=== PATIENT | female | born 1970 | race Caucasian/White ===

== ENCOUNTER → 2016-12-01 | Outpatient (CLI) | payer OTHER ==
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
== END | disposition home or self-care (01) ==
LOC: SLEEP 15:51
PROVIDERS: ATTEND Internal Medicine
DX: G47.10 Hypersomnia, unspecified (principal); F17.210 Nicotine dependence, cigarettes, uncomplicated; Z88.0 Allergy status to penicillin; Z86.69 Personal history of other diseases of the nervous system and sense organs
CPT/HCPCS: 99211

== ENCOUNTER → 2017-01-12 | Outpatient (CLI) | payer OTHER ==
--- NOTE | 2017-01-13 07:53 | PN ---
DATE OF SERVICE: 01/12/2017 A 46-year-old lady who has been followed in the Sleep Center to discuss results of her sleep studies and plan of the treatment. Patient had diagnostic polysomnogram and multiple sleep latency test and I discussed results of the sleep studies with patient in detail. Diagnostic polysomnogram did not show any significant abnormalities of respiration. Totally normal oxygen level during the sleep study, very minimal periodic limb movements with periods of increasing leg movements at the beginning of the night and then the second part of the night. On the following day, multiple sleep latency test showed short sleep latency of 4.9 minutes, not any sleep onset REM periods have been documented. MEDICATIONS: Synthroid. After sleep study, I started patient on treatment with Modafinil and Adderall. Presently she is taking Modafinil 150 mg around 7 a.m. and at 10 a.m. she is taking Adderall 20 mg and at 2 p.m. she is taking 20 mg of Adderall and 50 mg of Modafinil. Also she is taking Viibryd at 7 a.m. With this regimen she feels better, able to work during the day better, not so sleepy as before. [place] Sleepiness Scale is 13. During physical exam, patient in no distress. BP is 130/85, HR 90, RR 16, oxygen saturation at room air 100%, temperature 98.2. Weight 111.2 and oropharynx slightly low position of soft palate. NECK: Supple. No JVD, Thyroid is not palpable. LUNGS: Clear to percussion and to auscultation. Good air exchange. No wheezing or rhonchi. HEART: S1, S2 regular. No murmurs, gallops, or rubs. ABDOMEN: Soft and nontender. Bowel sounds are present. No organomegaly appreciated. RELEASE COORDINATOR: Awake, alert, and oriented x3. Cranial nerves 2 to 7 intact. There is no fasciculation or atrophy noted. No focal deficits observed. IMPRESSION: 1. Narcolepsy without cataplexy. 2. History of attention deficit disorder. 3. Hypothyroidism. 4. History of depression. PLAN: 1. Continue treatment with the same dose of modafinil 200 mg a day and Adderall 20 mg in the morning and 20 mg afternoon. 2. Daytime naps permitted if patient feels sleepiness. 3. Sleep hygiene with regular time in bed for at least 8-9 hours. 4. No driving if feeling any sleepiness. 5. HLA profile for narcolepsy. Sincerely, Conor Willis MD, PhD, FAASM Diplomat of [place] [employer], Sleep Medicine Board by [employer] Medicine General Assembler Installer of [facility] [place]
== END | disposition home or self-care (01) ==
LOC: SLEEP 16:06
PROVIDERS: ATTEND Internal Medicine
DX: G47.419 Narcolepsy without cataplexy (principal); F98.8 Other specified behavioral and emotional disorders with onset usually occurring in childhood and adolescence; E03.9 Hypothyroidism, unspecified; F32.9 Major depressive disorder, single episode, unspecified; Z79.899 Other long term (current) drug therapy

== ENCOUNTER 2017-02-16 17:49 | Emergency (ER) | payer OTHER ==
[2017-02-16 18:04] VITALS: RESP 18; TEMP 98.5
[2017-02-16 19:12] VITALS: BP 150/83; PULSE 70
[2017-02-16] MEDS ORDERED: CYCLOPENTOLATE 1% OPHTH SOLN 2 ML BTL LEFT EYE SCH (19:15)
--- NOTE | 2017-02-16 19:27 | ED ---
General Adult HPI - General Chief complaint: Eye Problems Stated complaint: LEFT EYE PAIN Time Seen by Provider: 02/16/17 18:30 Source: patient, RN notes reviewed Mode of arrival: ambulatory Limitations: no limitations - History of Present Illness Initial comments: Chief complaint and history of present illness a 46-year-old female reports an approximate 5 days ago she started having discomfort in her right eye. She had mostly photophobia. Bright lights make it significantly worse it slowly improved over the last several days today she started having had discomfort similar to the left and the left eye that she had the right eye. He does not want to go through the same painful experience. She states when light shines in either eye both eyes hurt. She denies any injuries to the eyes. Denies any chemical irritation. Denies any significant tearing. No foreign body sensation. No collection of crusty material in the morning upon awakening. - Related Data Home Medications Medication Instructions Recorded Confirmed Dextroamphetamine/Amphetamine 1 tab PO DAILY 04/02/15 09/17/15 [Adderall] Levothyroxine Sodium [Synthroid] 1 tab PO DAILY 04/02/15 09/17/15 traMADol HCl [Ultram] 1 tab PO DAILY 04/02/15 09/17/15 Previous Rx's Medication Instructions Recorded Ibuprofen [Motrin] 800 mg PO Q6HR PRN #20 tab 04/02/15 HYDROcodone/APAP 5-325MG [[place] 1 tab PO Q6HR PRN #20 tab 09/17/15 5-325] Naproxen [Naprosyn] 500 mg PO Q12HR #60 tab 09/17/15 methylPREDNISolone Dose Pack 4 mg PO DIRECTED #21 package 09/17/15 [Medrol Dose Pack] traMADol HCL [Ultram] 50 mg PO Q6HR PRN #12 tab 02/16/17 Allergies Allergy/AdvReac Type Severity Reaction Status Date / Time Penicillins Allergy Unknown Verified 09/17/15 07:57 Childhood Review of Systems ROS Statement: Those systems with pertinent positive or pertinent negative responses have been documented in the HPI. review of systems the patient is only complaint is discomfort initially to the right eye which is slowly improving and now the left eye starting her as well. Patient denies headache chest pain shortness breath GI/ problems no other issues at this time. All systems were reviewed. Past medical problems significant forDiagnosis of fibromyalgia. Patient states she is not sexually active for over 4 years. Denies having had a diagnosis made of ankylosing spondylolisthesis or Daniel syndrome denies any viral illnesses of late. Denies any bacterial issues. Patient has ALLERGIES to penicillinpatient reports that she smokes 2 packs per week. Denies alcohol use. Family history mother had COPD father had heart disease. Patient's surgeries include facial reconstruction on the right side of her face when she was 13. She's also had a states she takes medication for thyroid and has had carpal tunnel problems. ROS Other: All systems not noted in ROS Statement are negative. Past Medical History Past Medical History: Thyroid Disorder Additional Past Medical History / Comment(s): carpal tunnel History of Any Multi-Drug Resistant Organisms: None Reported Past Surgical History: Section Additional Past Surgical History / Comment(s): facial surgery Past Psychological History: No Psychological Hx Reported Smoking Status: Current every day smoker Past Alcohol Use History: None Reported Past Drug Use History: None Reported General Exam - General Exam Comments Initial Comments: General: The patient is awake and alert, complains of eye pain left eye worse than the right. States right eye bothering her for a while and became slightly better. Now the left eye hurts. She does have photophobia. Vital signs show temperature 98.5 pulse 79 respiratory rate 18 pulse ox on percent room air blood pressure 134/85 Eye: Pupils are equal, round and reactive to light, extra-ocular movements are intact ; mildly reddened conjunctiva bilaterally. Light shined in one eye causes pain in both. photophobia Cardiovascular: There is a regular rate and rhythm. No murmur, rub or gallop is appreciated. Respiratory: Lungs are clear to auscultation, respirations are non-labored, breath sounds are equal. No wheezes, stridor, rales, or rhonchi. Back: history of fibromyalgia Musculoskeletal: history of fibromyalgia with chronic musculoskeletal pain. Neurological: no neuro deficits Skin: no skin rashes Limitations: no limitations Course Vital Signs 02/16/17 18:00 Temperature 98.5 F Pulse Rate 79 Respiratory 18 Rate Blood Pressure 134/85 O2 Sat by Pulse 100 Oximetry Medical Decision Making - Medical Decision Making medical decision-making. The patient and I did discuss possibilities of noninfectious causes such as ankylosing spondylitis sarcoidosis Daniel's arthritis, sciatica etc. also possibility of infectious disorders none of which appear to be likely to be bothering at this time no evidence of any bacterial problems at this time the case discussed with on-call diesel locomotive crane operator Dr. Pena. He recommends CBC sed rate and CRP. The patient be evaluated in the diesel locomotive crane operator's office the morning. In the meanwhile she is to have cyclopentolate drops put in her affected left eye only at this time. Patient was given 1 tramadol for pain. Disposition Clinical Impression: Iritis acute or subacute Disposition: HOME SELF-CARE Condition: Fair Instructions: Iritis (ED) Additional Instructions: Follow-up with the eye doctor at [address] Pena's office. Prescriptions: traMADol HCL [Ultram] 50 mg PO Q6HR PRN #12 tab PRN Reason: Pain Referrals: Broderick Horn MD [Primary Care Provider] - 1-2 days Time of Disposition: 19:31
[2017-02-16 19:32] LABS: Basophils # (A) 0.1 k/uL (0-0.2); Basophils % (A) 1 %; CH 31.4; CHCM 33.6; Eosinophils # (A) 0.5 k/uL (0-0.7); Eosinophils % (A) 6 %; HCT 39.5 % (34.0-46.0); HDW 2.44; HGB 13.8 gm/dL (11.4-16.0); Luc # (Auto) 0.16; Luc % (Auto) 2; Lymphocytes # (A) 1.9 k/uL (1.0-4.8); Lymphocytes % (A) 22 %; MCH 32.8 pg (25.0-35.0); MCV 93.8 fL (80.0-100.0); Mean Platelet Volume 6.3; Monocytes # (A) 0.5 k/uL (0-1.0); Monocytes % (A) 5 %; Neutrophils # (A) 5.7 k/uL (1.3-7.7); Neutrophils % (A) 64 %; RBC 4.21 m/uL (3.80-5.40); RDW 12.4 % (11.5-15.5); WBC 8.9 k/uL (3.8-10.6); WBC (Perox) 9.41
[2017-02-16 20:22] LABS: Erythrocyte Sedimentation Rate 14 mm/hr (0-20)
== END 2017-02-16 19:41 | disposition home or self-care (01) ==
LOC: EC 17:49
DX: H20.00 Unspecified acute and subacute iridocyclitis (principal); E07.9 Disorder of thyroid, unspecified; G89.29 Other chronic pain; F17.200 Nicotine dependence, unspecified, uncomplicated; Z79.891 Long term (current) use of opiate analgesic; Z79.899 Other long term (current) drug therapy; Z88.0 Allergy status to penicillin
CPT/HCPCS: 36415; 85025; 85652; 86140; 99283

== ENCOUNTER → 2017-03-02 | Outpatient (CLI) | payer OTHER ==
--- NOTE | 2017-03-02 21:40 | PN ---
46-year-old lady who has been followed in the sleep center for treatment of narcolepsy. Presently, she is on treatment with Adderall 20 mg 2 times a day and Modafinil 400 mg in the morning. With Modafinil at that dose, she feels ( ) exam without energy although it does improve her alertness during the day. [place] Sleepiness Scale still increased to 18. MEDICATIONS: 1. Synthroid. 2. Modafinil. 3. Adderall. During physical exam, the patient in no distress. VITAL SIGNS: BP 121/54, HR 84, RR 14, height 63 inches. Weight 113.8. BMI 20.1. Temperature 98.0 oxygen saturation on room air 97%. HEENT: PERRLA, EOMI oropharynx moderately low position of soft palate. Neck: Supple. No JVD. Thyroid is not palpable. LUNGS: Clear to percussion and to auscultation. Good air exchange. No wheezing or rhonchi. HEART: S1, S2 regular. No murmurs, gallops, or rubs. ABDOMEN: Soft and nontender. Bowel sounds are present. No organomegaly appreciated. EXTREMITIES: No clubbing or cyanosis. COMMERCIAL MORTGAGE BROKER: Awake, alert, and oriented x3. Cranial nerves 2 to 7 intact. There is no fasciculation or atrophy noted. No focal deficits observed. IMPRESSION: 1. Narcolepsy. 2. History of recent left eye uveitis. Bilateral uveitis. 3. History of attention deficit disorder. 4. Hypothyroidism. 5. History of depression. PLAN: 1. We will increase dose of Adderall to 30 mg 2 times a day. 2. We will decrease the dose of Modafinil down to 300 mg. 3. Sleep hygiene with regular time in bed for at least 8 hours. 4. Daytime naps permitted. 5. No driving if feeling any sleepiness. Sincerely, Conor Willis MD, PhD, FAASM. Diplomat of [place] Board [employer] Sleep Medicine, Sleep Medicine Board by [employer] Board of Internal Medicine Executive Coordinator of [facility] [place]
== END ==
LOC: SLEEP 16:56
PROVIDERS: ATTEND Internal Medicine
DX: G47.419 Narcolepsy without cataplexy (principal); E03.9 Hypothyroidism, unspecified; F32.9 Major depressive disorder, single episode, unspecified; H20.9 Unspecified iridocyclitis; Z79.899 Other long term (current) drug therapy

== ENCOUNTER → 2017-10-05 | Outpatient (CLI) | payer OTHER ==
--- NOTE | 2017-10-05 17:38 | PN ---
PROGRESS NOTE DATE OF SERVICE: 10/05/2017 This patient is a 47-year-old lady who has been followed in the sleep center for treatment of narcolepsy. She is on treatment with Adderall. Before she was on treatment with modafinil but did not tolerate it well. She felt more confusion and tiredness on the dose of 400 mg. Then we tried decreasing the dose to 300 mg, but she is not taking it at the present time. On Adderall she continues to feel tiredness and sleepiness during the day. She feels better, but she still feels sometimes tiredness and sleepiness. [place] Sleepiness Scale is 22 today. MEDICATIONS: 1. Synthroid. 2. Adderall. 3. Viibryd. 4. Tramadol. PHYSICAL EXAMINATION: GENERAL: Patient in no distress. VITAL SIGNS: BP 147/59, HR 100, RR 16. Height 5 feet 3 inches, weight 114. BMI 20. Temperature 98.2, oxygen saturation at room air 96%. HEENT: PERRLA, EOMI. Evaluation of oropharynx showed tongue protrudes midline; moderately low position of soft palate. NECK: Supple. No JVD. Thyroid is not palpable. LUNGS: Clear to percussion and to auscultation. Good air exchange. No wheezing or rhonchi. HEART: S1, S2 regular. Tachycardia. ABDOMEN: Soft and nontender. Bowel sounds are present. No organomegaly appreciated. EXTREMITIES : No clubbing or cyanosis. CAFETERIA MONITOR: Awake, alert, and oriented X3. Cranial nerves 2 to 7 intact. There is no fasciculation or atrophy. noted. No focal deficits observed. IMPRESSION: 1. Narcolepsy. 2. Bilateral uveitis. 3. History of attention deficit disorder. 4. Hypothyroidism, on thyroid supplement. 5. History of depression. PLAN: 1. Patient will continue treatment with Adderall 30 mg b.i.d. 2. We will try Nuvigil 150 mg one dose in the morning. 3. Sleep hygiene with regular time in bed for 7-1/2 hours. 4. Daytime naps permitted. 5. No driving if feeling any sleepiness. Thank you very much for allowing me to participate in the management of your patient. Sincerely, Conor Willis MD, PhD, FAASM Diplomat of [employer] [employer] [employer] Medicine Slate Splitter of [facility] [place] BERNARDINO / ARELIS: [id number] /
== END | disposition home or self-care (01) ==
LOC: SLEEP 16:17
PROVIDERS: ATTEND Internal Medicine
DX: G47.419 Narcolepsy without cataplexy (principal); H20.9 Unspecified iridocyclitis; F32.9 Major depressive disorder, single episode, unspecified; E03.9 Hypothyroidism, unspecified; Z79.899 Other long term (current) drug therapy; Z79.891 Long term (current) use of opiate analgesic; Z86.59 Personal history of other mental and behavioral disorders

== ENCOUNTER → 2018-07-14 | Outpatient (CLI) | payer OTHER ==
--- NOTE | 2018-07-14 10:23 | MR ---
EXAMINATION TYPE: MR sacroiliac joints wo con DATE OF EXAM: 07/14/2018 COMPARISON: None HISTORY: Sacroiliitis Standard multiplanar, multisequence MRI departmental protocol Multiplanar, multisequence images of the sacroiliac joints were acquired. Diffusion weighted imaging was performed. FINDINGS: The sacroiliac joints appear symmetric bilaterally. There is no evidence for abnormal widening or scl erosis. No destructive process is seen. Bone marrow signal is felt to be within normal limits. No pre sacral mass identified. No evidence for fracture or osseous lesion. Lower lumbar spine appears grossl y unremarkable. IMPRESSION: No MRI evidence to suggest sacroiliitis at this time.
== END | disposition home or self-care (01) ==
LOC: RADMRIMAIN 09:37
PROVIDERS: ATTEND Physician Assistant Medical
DX: M46.1 Sacroiliitis, not elsewhere classified (principal)
CPT/HCPCS: 72195

== ENCOUNTER 2018-11-23 18:27 | Emergency (ER) | payer OTHER ==
[2018-11-23 18:36] VITALS: BP 155/88; PULSE 76; RESP 18; TEMP 98.4
[2018-11-23] MEDS ORDERED: HYDROcodone/APAP 10-325MG 1 EACH TAB PO ONE (18:57)
[2018-11-23] MEDS ORDERED: HYDROcodone/APAP 7.5-325MG 1 EACH TAB PO ONE (19:18)
--- NOTE | 2018-11-23 19:26 | XR ---
PROCEDURE: XR knee complete RT - 3V DATE AND TIME: 11/23/2018 7:07 PM CLINICAL INDICATION: [facility]; Pain TECHNIQUE: Department protocol COMPARISON: None FINDINGS: There is no fracture or malalignment. The soft tissues are unremarkable. IMPRESSION: NO ACUTE PROCESS.
--- NOTE | 2018-11-23 19:37 | ED ---
Lower Extremity Injury HPI - General Chief Complaint: Extremity Injury, Lower Stated Complaint: Knee Pain Time Seen by Provider: 11/23/18 18:39 Source: patient Mode of arrival: ambulatory Limitations: no limitations - History of Present Illness Initial Comments: 48-year-old female past medical history fibromyalgia, ankylosing spondylitis, narcolepsy, ADD presenting today for cc of right knee pain. Patient states about a week and half ago she noticed a large bulging on the anterior aspect of her knee. She states it was tender palpation she denies any erythema. Patient denies a fever chills general malaise or night sweats. Patient states that it was tender to patient over the anterior knee. Patient states she was able to fully range the knee without difficulty. Patient states since this morning is going down. Patient states that she continues have pain over the anterior knee. 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 Patient states that the pain persists she is unable to weight-bear on her knees. Patient states she is able to fully weight-bear with ambulation as well as pain to the right knee. Patient denies any abnormalities of the left knee she denies any trauma to the knees or falls. Patient denies any numbness tingling loss sensation coolness or pallor of the extremity. Upon arrival patient appears well she is able to write without difficulty. No signs of acute distress. Vital signs within acceptable limits patient is afebrile - Related Data Home Medications Medication Instructions Recorded Confirmed Levothyroxine Sodium [Synthroid] 50 mcg PO DAILY 04/02/15 02/16/17 traMADol HCl [Ultram] 50 - 100 mg PO DAILY PRN 04/02/15 02/16/17 Dextroamphetamine/Amphetamine 20 mg PO BID 02/16/17 02/16/17 [Adderall] Modafinil [Provigil] 400 mg PO DAILY 02/16/17 02/16/17 Vilazodone HCl [Viibryd] 10 mg PO DAILY 02/16/17 02/16/17 Previous Rx's Medication Instructions Recorded traMADol HCL [Ultram] 50 mg PO Q6HR PRN #12 tab 02/16/17 Allergies Allergy/AdvReac Type Severity Reaction Status Date / Time Penicillins Allergy Unknown Verified 11/23/18 18:36 Childhood Review of Systems ROS Statement: Those systems with pertinent positive or pertinent negative responses have been documented in the HPI. ROS Other: All systems not noted in ROS Statement are negative. Past Medical History Past Medical History: Thyroid Disorder Additional Past Medical History / Comment(s): carpal tunnel, History of Any Multi-Drug Resistant Organisms: None Reported Past Surgical History: Section Additional Past Surgical History / Comment(s): facial surgery Past Psychological History: Anxiety, Depression Smoking Status: Current every day smoker Past Alcohol Use History: Occasional Past Drug Use History: None Reported General Exam - General Exam Comments Initial Comments: General: The patient is awake and alert, in no distress, and does not appear acutely ill. Eye: Pupils are equal, round and reactive to light, extra-ocular movements are intact. No nystagmus. There is normal conjunctiva bilaterally. No signs of icterus. Ears, nose, mouth and throat: There are moist mucous membranes and no oral lesions. Neck: The neck is supple, there is no tenderness or JVD. Cardiovascular: There is a regular rate and rhythm. No murmur, rub or gallop is appreciated. Respiratory: Lungs are clear to auscultation, respirations are non-labored, breath sounds are equal. No wheezes, stridor, rales, or rhonchi. Gastrointestinal: [Soft, non-distended, non-tender abdomen without masses or organomegaly noted. There is no rebound or guarding present. No CVA tenderness. Bowel sounds are unremarkable.] Musculoskeletal: Normal inspection with no abnormalities equal comparison bilaterally of the anterior knee. Normal ROM, no tenderness of the knees bilaterally. Strength 5/5 of the lower extremities at the hips knees and ankles equal comparison bilaterally. Sensation intact both proximal distal to injury. DP pulses equal bilaterally 2+. Compartments soft and compressible. No samuel dence of foot drop tenderness to patient of the anterior right knee. No tenderness to palpation of the posterior knee bilateral Neurological: A&O x 3. CN II-XII intact, There are no obvious motor or sensory deficits. Coordination appears grossly intact. Speech is normal. Skin: Skin is warm and dry and no rashes or lesions are noted. Psychiatric: Cooperative, appropriate mood & affect, normal judgment. 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 Patient has history concern ing for possible previous prepatellar bursitis. Since the swelling has reduced. There is no evidence of soft tissue. ALLERGIES on x-ray no joint effusion. Patient has no warmth to palpation of the knee, there is no erythema patient is able fully range without difficulty or pain or for infectious septic arthritis at this time. Patient afebrile appearing well no general malaise fever chills or night sweats. Patient will be discharged with symptomatic treatment if symptoms persist patient is to follow-up with primary care provider for orthopedic surgery referral. Patient discharged appearing well with instruction to continue her home norco as previously prescribed for pain management. Return parameters were discussed at length the patient who verbalized understanding. I discussed case with [place] provider Dr. Whaley prior to patient's discharge reviewed imaging studies. Disposition Clinical Impression: Right anterior knee pain, Overuse injury Disposition: HOME SELF-CARE Condition: Good Instructions (If sedation given, give patient instructions): Knee Bursitis ( ED), Knee Pain (ED) Additional Instructions: Please use medication as discussed. Please follow-up with family doctor in the next 2 days of symptoms have not improved. Please return to emergency room if the symptoms increase or worsen or for any other concerns. Is patient prescribed a controlled substance at d/c from ED?: No Referrals: Broderick Horn MD [Primary Care Provider] - 1-2 days Time of Disposition: 19:37
== END 2018-11-23 19:43 | disposition home or self-care (01) ==
LOC: EC 18:27
DX: M70.861 Other soft tissue disorders related to use, overuse and pressure, right lower leg (principal); M25.561 Pain in right knee; E07.9 Disorder of thyroid, unspecified; F32.9 Major depressive disorder, single episode, unspecified; F41.9 Anxiety disorder, unspecified; F17.200 Nicotine dependence, unspecified, uncomplicated; Z88.0 Allergy status to penicillin; Z79.890 Hormone replacement therapy; Z79.899 Other long term (current) drug therapy; Z87.39 Personal history of other diseases of the musculoskeletal system and connective tissue; Z87.828 Personal history of other (healed) physical injury and trauma
CPT/HCPCS: 99283

== ENCOUNTER 2019-03-09 08:54 | Emergency (ER) | payer OTHER ==
[2019-03-09 09:04] VITALS: BP 130/74; PULSE 85; RESP 16; TEMP 98.6
[2019-03-09] MEDS ORDERED: KETOROLAC 60 MG/2 ML VIAL IM STA (09:47)
--- NOTE | 2019-03-09 10:03 | ED ---
Abdominal Pain HPI - General Chief Complaint: Abdominal Pain Stated Complaint: rt sided rib pain Time Seen by Provider: 03/09/19 09:11 Source: patient Mode of arrival: ambulatory Limitations: no limitations - History of Present Illness Initial Comments: 48-year-old female presenting for right-sided rib pain. Patient states she can point localize the area of tenderness of the right rib. She states that this has been ongoing for the past 4 days. She states that she does a twisting motion she has pain in the right rib. Describes this as sharp increasing with twisting movement. She denies this being the right upper quadrant of the abdomen. Patient denies any nausea vomiting she denies history of gallstones. The patient has a fever chills or night sweats. Patient states she is in the [employer] business she states she is often leaning on her ribs and lifting heavy objects. She states she has been moving heavy objects the past few days and states that there could've been a possible injury. Patient denies any chest pain and shortness of breath. She denies any cough. Remaining ROS (-). Patient states that she would have went to her primary but knew he would want an xr and thought it would be easier to come to the ER first. - Related Data Home Medications Medication Instructions Recorded Confirmed ALPRAZolam [Xanax] 0.25 mg PO HS PRN 03/09/19 03/09/19 Dextroamphetamine/Amphetamine 30 mg PO BID 03/09/19 03/09/19 [Adderall] Gabapentin [Neurontin] 100 mg PO HS 03/09/19 03/09/19 Ibuprofen [Motrin] 600 mg PO TID PRN 03/09/19 03/09/19 Levothyroxine Sodium [Synthroid] 75 mcg PO DAILY 03/09/19 03/09/19 Vilazodone HCl [Viibryd] 20 mg PO DAILY 03/09/19 03/09/19 Allergies Allergy/AdvReac Type Severity Reaction Status Date / Time Penicillins Allergy Unknown Verified 03/09/19 09:55 Childhood Review of Systems ROS Statement: Those systems with pertinent positive or pertinent negative responses have been documented in the HPI. ROS Other: All systems not noted in ROS Statement are negative. Past Medical History Past Medical History: Thyroid Disorder Additional Past Medical History / Comment(s): carpal tunnel, History of Any Multi-Drug Resistant Organisms: None Reported Past Surgical History: Section Additional Past Surgical History / Comment(s): facial surgery Past Psychological History: Anxiety, Depression Smoking Status: Current every day smoker Past Alcohol Use History: Occasional Past Drug Use History: None Reported General Exam - General Exam Comments Initial Comments: General: The patient is awake and alert, in no distress, and does not appear acutely ill. Eye: +3 mm pupils are equal, round and reactive to light, extra-ocular movements are intact. No nystagmus. There is normal conjunctiva bilaterally. No signs of icterus. Ears, nose, mouth and throat: There are moist mucous membranes and no oral lesions. Neck: The neck is supple, there is no tenderness or JVD. Cardiovascular: There is a regular rate and rhythm. No murmur, rub or gallop is appreciated. Respiratory: Lungs are clear to auscultation, respirations are non-labored, breath sounds are equal. No wheezes, stridor, rales, or rhonchi. Gastrointestinal: Soft, non-distended, non-tender abdomen without masses or organomegaly noted. There is no rebound or guarding present. No CVA tenderness. Bowel sounds are unremarkable. Negative Ayers sign. Musculoskeletal: Patient is tender to palpation around lateral right rib 8-9. Normal ROM, no tenderness. Strength 5/5. Sensation intact. Radial pulses equal bilaterally 2+. Neurological: A&O x 3. CN II-XII intact, There are no obvious motor or sensory deficits. Coordination appears grossly intact. Speech is normal. Skin: Skin is warm and dry and no rashes or lesions are noted. Psychiatric: Cooperative, appropriate mood & affect, normal judgment. Limitations: no limitations Course Vital Signs 03/09/19 09:02 Temperature 98.6 F Pulse Rate 85 Respiratory 16 Rate Blood Pressure 130/74 O2 Sat by Pulse 100 Oximetry Medical Decision Making - Medical Decision Making 48-year-old female presented for right rib pain. Patient states that she feels she began noticing pain after lifting something heavy was not sure. Patient denies any chest pain or pleuritic chest pain. Denies SOB. Patient denies hemop tysis recent surgeries/trauma, unilateral leg swelling, history of PE or DVT she denies any exogenous hormone use. PERC (-). HR WNL, oxygenating well on RA. Patient requesting XR. Given toradol. XR (-). Before I could discuss results or discharge patient, patient left without completion of care. Disposition Clinical Impression: Rib pain on right side Disposition: HOME SELF-CARE Instructions (If sedation given, give patient instructions): Rib Contusion (ED) Additional Instructions: Please use medication as discussed. Please follow-up with family doctor in the next 2 days.. Please return to emergency room if the symptoms increase or worsen or for any other concerns. Is patient prescribed a controlled substance at d/c from ED?: No Referrals: Broderick Horn MD [Primary Care Provider] - 1-2 days Time of Disposition: 11:24
--- NOTE | 2019-03-09 11:20 | XR ---
EXAMINATION TYPE: XR ribs RT w pa chest xray , 5 VIEWS DATE OF EXAM ORDERED: 03/09/2019 HISTORY: Pain. COMPARISON: None. FINDINGS: The lungs are clear. Pleural spaces are clear. The heart is not enlarged. There is no evid ence of pneumothorax. No displaced rib fracture is seen. IMPRESSION: NORMAL CHEST AND RIGHT RIBS.
== END 2019-03-09 11:46 | disposition home or self-care (01) ==
LOC: EC 08:54
DX: R07.81 Pleurodynia (principal); E07.9 Disorder of thyroid, unspecified; F41.9 Anxiety disorder, unspecified; F32.9 Major depressive disorder, single episode, unspecified; F17.200 Nicotine dependence, unspecified, uncomplicated; Z79.890 Hormone replacement therapy; Z79.899 Other long term (current) drug therapy; Z88.0 Allergy status to penicillin
CPT/HCPCS: 71101; 99283; 96372; J1885

== ENCOUNTER → 2019-03-14 | Outpatient (CLI) | payer OTHER ==
--- NOTE | 2019-03-14 14:29 | SFUN ---
SLEEP CENTER FOLLOW UP NOTE DATE OF SERVICE: 03/14/2019. A 48-year-old lady who has been followed in the Sleep Center for treatment of narcolepsy. Patient continued to take Adderall 30 mg 2 times a day. She does not have any side effects from Adderall, she feel less sleepy, more concentrated while she is using Adderall. Patient tried to use our modafinil 150 mg in the morning, but she feels that her concentration with our modafinil is worse and she cannot use it. [place] Sleepiness Scale is 20 today, MEDICATIONS: Synthroid, Viibryd, Neurontin. PHYSICAL EXAM: Patient in no distress, BP 142/84, HR 84, RR 16, height 5, 3, weight 119, weight 21.6, temperature 98.4, oxygen saturation at room air 99%. HEENT PERRLA, EOMI, evaluation of oropharynx showed tongue protrudes midline. Neck Supple, no JVD. Thyroid is not palpable. LUNGS Clear to percussion and to auscultation. Good air exchange. No wheezing or rhonchi. HEART S1, S2 regular. No murmurs, gallops, or rubs. ABDOMEN Soft and nontender. Bowel sounds are present. No organomegaly appreciated. EXTREMITIES No clubbing or cyanosis. CENTER PUNCH OPERATOR Awake, alert, and oriented X3. Cranial nerves 2 to 7 intact. There is no fasciculation or atrophy. noted. No focal deficits observed. IMPRESSION: 1. Narcolepsy without cataplexy. 2. History of ankylosing spondylitis. 3. History of fibromyalgia. 4. History of carpal tunnel bilaterally. 5. History of ADHD. 6. History of depression. 7. History of hypothyroidism on thyroid supplement. PLAN: 1. Patient will continue Adderall 30 mg 2 times b.i.d. 2. Sleep hygiene with regular time in bed for 7-1/2 - 8 hours. 3. Daytime naps permitted. 4. Precautions related to driving. No driving if feeling any sleepiness. Sincerely, Conor Willis MD, PhD, FAASM Diplomat of [employer] [employer] Padding Gluer of [facility] [place] MMODL / IJN: [id number] /
== END | disposition home or self-care (01) ==
LOC: SLEEP 13:02
PROVIDERS: ATTEND Internal Medicine
DX: G47.419 Narcolepsy without cataplexy (principal); E03.9 Hypothyroidism, unspecified; Z87.39 Personal history of other diseases of the musculoskeletal system and connective tissue; Z86.59 Personal history of other mental and behavioral disorders; Z79.899 Other long term (current) drug therapy

== ENCOUNTER → 2019-08-29 | Outpatient (CLI) | payer OTHER ==
--- NOTE | 2019-08-29 13:05 | SFUN ---
SLEEP CENTER FOLLOW UP NOTE DATE OF SERVICE: 08/29/2019 A 49-year-old lady who has been followed in the sleep center for treatment of narcolepsy. Patient continues to take her Adderall 30 mg 2 times a day. With this regimen, she feels better, but she may have some difficulties to use this dose of medication, just 2 times a day. She would prefer to take medication 3 times a day. [place] Sleepiness Scale today is 18. Not any significant side effects from the Adderall. Patient denied any episodes of palpitation or increasing blood pressure. MEDICATIONS: Synthroid, Viibryd, Neurontin and Adderall. PHYSICAL EXAM: Patient in no distress BP 163/96, HR 92, RR 14. Height 5, 3, weight 118.8, which is about the same as during the last visit, temperature 97.8, oxygen saturation 100%. HEENT: PERRLA, EOMI, evaluation of oropharynx showed tongue protrudes midline. NECK: Supple, no JVD. Thyroid is not palpable. LUNGS: Clear to percussion and to auscultation. Good air exchange. No wheezing or rhonchi. HEART: S1, S2 regular. No murmurs, gallops, or rubs. ABDOMEN: Soft and nontender. Bowel sounds are present. No organomegaly appreciated. EXTREMITIES: No clubbing or cyanosis. BOWL ATTENDANT: Awake, alert, and oriented X3. Cranial nerves 2 to 7 intact. There is no fasciculation or atrophy. noted. No focal deficits observed. IMPRESSION: 1. Narcolepsy without cataplexy. 2. History of fibromyalgia. 3. History of ankylosing spondylitis. 4. History of carpal tunnel syndrome bilaterally. 5. History of ADHD. 6. History of depression. 7. History of hypothyroidism on thyroid supplement. PLAN: 1. Patient will continue to take Adderall. We will change the regimen of treatment to 20 mg of Adderall 3 times a day about 6:00 am, two at noon and around 4 p.m. 2. Daytime naps permitted. 3. Precautions related to driving. No driving if feeling sleepiness. Thank you very much for allowing me to participate in the care of this patient. Sincerely, Conor Willis MD, PhD, FAASM Diplomat of [employer] Manager of [facility] [place] MMODL / ARELIS: [id number] /
== END | disposition home or self-care (01) ==
LOC: SLEEP 12:11
PROVIDERS: ATTEND Internal Medicine
DX: G47.419 Narcolepsy without cataplexy (principal); Z87.39 Personal history of other diseases of the musculoskeletal system and connective tissue; Z86.59 Personal history of other mental and behavioral disorders; Z86.39 Personal history of other endocrine, nutritional and metabolic disease

== ENCOUNTER → 2020-05-07 | Day surgery (SDC) | payer OTHER ==
[2020-05-01 14:13] VITALS: BMI 19.4
[~2020-05-07] MED LIST: GLYCOPYRROLATE 0.2 MG/ML 2 ML VIAL ONE; LACTATED RINGERS 1,000 ML IV SCH; LIDOCAINE 1% INJ 10MG/ML (20 ML MDV) ONE; PROPOFOL 10 MG/ML 20 ML VIAL IV ONE
[2020-05-07 11:08] VITALS: TEMP 97.3
--- NOTE | 2020-05-07 11:33 | P.GSHP ---
History of Present Illness H&P Date: 05/07/20 Chief Complaint: GERD This 49-year-old female presents today for EGD. Patient that she will GERD. Past Medical History Past Medical History: Fibromyalgia, Thyroid Disorder Additional Past Medical History / Comment(s): carpal tunnel,narcolepsy,Ankylosing Spondylitis History of Any Multi-Drug Resistant Organisms: None Reported Past Surgical History: Section Additional Past Surgical History / Comment(s): facial surgery,c sect x2 Past Anesthesia/Blood Transfusion Reactions: No Reported Reaction Smoking Status: Former smoker - Past Family History Mother Family Medical History: No Reported History Medications and Allergies Home Medications Medication Instructions Recorded Confirmed Type Dextroamphetamine/Amphetamine 30 mg PO BID 03/09/19 05/01/20 History [Adderall] Ibuprofen [Motrin] 600 mg PO TID PRN 03/09/19 05/01/20 History Levothyroxine Sodium [Synthroid] 75 mcg PO QAM 03/09/19 05/01/20 History Allergies Allergy/AdvReac Type Severity Reaction Status Date / Time Penicillins Allergy Unknown Verified 05/07/20 11:09 Childhood Surgical - Exam Vital Signs Temp Pulse Resp BP Pulse Ox 97.3 F L 98 14 124/74 97 05/07/20 11:07 05/07/20 11:07 05/07/20 11:07 05/07/20 11:07 05/07/20 11:07 - General well developed, well nourished, no distress - Eyes PERRL - ENT normal pinna - Neck no masses - Respiratory normal expansion - Cardiovascular Rhythm: regular - Abdomen Abdomen: soft, non tender Assessment and Plan Assessment: GERD. We'll perform EGD.
--- NOTE | 2020-05-07 11:40 | P.OP ---
Date of Procedure: 05/07/20 Preoperative Diagnosis: GERD Procedure(s) Performed: EGD Anesthesia: MAC Condition: stable Disposition: PACU Description of Procedure: The patient's placed on the endoscopy table in the lateral position. She received IV sedation. The gastro-/oropharynx past esophagus stomach. The placed through the pylorus. The first and second portion of duodenum appeared normal. Scope was then brought back the antrum this is minimally inflamed. A biopsies performed. The scope was then retroflexed and there is no significant hiatal hernia. The GE junction was at 40 cm. The distal esophagus appeared minimally inflamed a biopsies performed. The proximal esophagus appeared normal. Scope was withdrawn for patient.
[2020-05-07 12:18] VITALS: BP 136/90; PULSE 94; RESP 16
--- NOTE | 2020-05-07 20:36 | NM ---
EXAMINATION TYPE: NM hepatobiliary w CCK DATE OF EXAM: 05/07/2020 COMPARISON: NONE HISTORY: TECHNIQUE: After the intravenous administration of 3.38 mCi Tc 99m Mebrofenin hepatobiliary scintigra phy is performed. Immediate images post injection. FINDINGS: There is satisfactory initial accumulation of tracer by the liver. The gallbladder is visualized wit hin 15 minutes. The small bowel activity is noted within 45 minutes. At one hour CCK was administer ed, patient was injected with 1.0 mcg of Kinevac, and gallbladder ejection fraction is calculated at 60 %, in the normal range. Therefore there is no scintigraphic evidence of cystic or common bile abdi t obstruction to suggest acute cholecystitis or gallbladder dyskinesia. IMPRESSION: There is no focal liver defect. Normal gallbladder ejection fraction. No evidence of cys tic duct or common bile duct obstruction.
== END ==
LOC: ORWHC2ENDO 10:47
PROVIDERS: ATTEND Surgery
DX: K21.9 Gastro-esophageal reflux disease without esophagitis (principal); M79.7 Fibromyalgia; E07.9 Disorder of thyroid, unspecified; Z98.890 Other specified postprocedural states; G47.419 Narcolepsy without cataplexy; M45.9 Ankylosing spondylitis of unspecified sites in spine; Z79.890 Hormone replacement therapy; Z79.899 Other long term (current) drug therapy; Z87.891 Personal history of nicotine dependence; Z88.0 Allergy status to penicillin; Z79.1 Long term (current) use of non-steroidal anti-inflammatories (NSAID)
CPT/HCPCS: 88305; 78227; 43239; A9537; J2805; J2001; J2704

== ENCOUNTER 2020-06-27 18:40 | Emergency (ER) | payer OTHER ==
[2020-06-27 18:46] VITALS: BP 143/67; PULSE 73; RESP 16; TEMP 98.4
--- NOTE | 2020-06-27 19:52 | XR ---
EXAMINATION TYPE: XR ribs RT w pa chest xray DATE OF EXAM: 06/27/2020 COMPARISON: NONE HISTORY: Rib pain TECHNIQUE: 5 views FINDINGS: There is no pleural effusion or pneumothorax. Right lung is clear of infiltrate. I see no r ib fracture. The heart and mediastinum are normal. There are no hilar masses. Heart size is normal. Thoracic spine is intact. IMPRESSION: No active cardiopulmonary disease. Normal heart. No evidence of rib fracture.
[2020-06-27] MEDS ORDERED: ACET/COD 300 MG/30 MG STARTER PACK 6 TAB BTL PO STA (20:00)
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
== END 2020-06-27 20:27 | disposition home or self-care (01) ==
LOC: EC 18:40
DX: S20.219A Contusion of unspecified front wall of thorax, initial encounter (principal); E07.9 Disorder of thyroid, unspecified; F17.290 Nicotine dependence, other tobacco product, uncomplicated; Z79.899 Other long term (current) drug therapy; Z79.890 Hormone replacement therapy; Z88.0 Allergy status to penicillin; W50.1XXA Accidental kick by another person, initial encounter; Y93.72 Activity, wrestling
CPT/HCPCS: 99283

== ENCOUNTER → 2020-10-22 | Outpatient (CLI) | payer OTHER ==
--- NOTE | 2020-10-22 19:45 | SFUN ---
SLEEP CENTER FOLLOW UP NOTE DATE OF SERVICE: 10/22/2020 This is a 50-year-old lady who has been followed in [facility] for treatment of narcolepsy. The patient continues to take Adderall 20 mg 3 times a day, but she feels that it would be easier for her if she took 30 mg twice a day. Wendell Sleepiness Scale today is 15. The patient can manage her sleepiness during the day. No significant side effects of Adderall. No increasing blood pressure or palpitations. MEDICATIONS: 1. Levothyroxine 50 mcg once a day. 2. Gabapentin 300 mg once a day. 3. Adderall 20 mg three times a day. PHYSICAL EXAMINATION: GENERAL: A pleasant patient in no distress. VITAL SIGNS: BP 145/92, HR 84, RR 12, height 5 feet 4 inches, weight 116, BMI 19.9, temperature 98.0, oxygen saturation at room air 100%. HEENT: PERRLA, EOMI. Evaluation of oropharynx showed tongue protrudes midline. NECK: Supple. No JVD. Thyroid is not palpable. LUNGS: Clear to percussion and to auscultation. Good air exchange. No wheezing or rhonchi. HEART: S1, S2 regular. No murmurs, gallops or rubs. ABDOMEN: Soft and nontender. Bowel sounds are present. No organomegaly appreciated. EXTREMITIES: No clubbing or cyanosis. ORDER RUNNER: Awake, alert, and oriented X3. Cranial nerves 2 to 7 intact. There is no fasciculation or atrophy. noted. No focal deficits observed. IMPRESSION: 1. Narcolepsy, type 2. 2. History of fibromyalgia. 3. History of ankylosing spondylitis. 4. History of carpal tunnel syndrome. 5. History of attention deficit hyperactivity disorder. 6. History of depression. 7. History of hypothyroidism. PLAN: 1. Patient will continue to take Adderall. I switched it to 30 mg two times a day. Total dose is the same as before. 2. Precautions related to driving. No driving if feeling any sleepiness. 3. Daytime naps permitted. 4. Sleep hygiene with regular time in bed for 7-1/2 to 8 hours. Thank you very much for allowing me to participate in the management of your patient. Sincerely, Conor Willis MD, PhD, FAASM Diplomat of [place] [employer] App[employer]ice of [facility] [place] MMMARIEL / JOVANN: [phone] /
== END | disposition home or self-care (01) ==
LOC: SLEEP 10:30
PROVIDERS: ATTEND Internal Medicine
DX: G47.419 Narcolepsy without cataplexy (principal); Z79.890 Hormone replacement therapy; Z79.899 Other long term (current) drug therapy; Z87.39 Personal history of other diseases of the musculoskeletal system and connective tissue; Z86.59 Personal history of other mental and behavioral disorders; Z86.39 Personal history of other endocrine, nutritional and metabolic disease

== ENCOUNTER 2021-07-01 13:38 | Emergency (ER) | payer OTHER ==
[2021-07-01 13:58] VITALS: TEMP 97.9
[2021-07-01] MEDS ORDERED: MECLIZINE 12.5 MG TAB PO STA (17:02)
[2021-07-01 17:34] LABS: Basophils % (A) 0 %; Eosinophils # (A) 0.2 k/uL (0-0.7); Eosinophils % (A) 2 %; HCT 39.7 % (34.0-46.0); Lymphocytes # (A) 2.4 k/uL (1.0-4.8); Lymphocytes % (A) 21 %; MCH 31.3 pg (25.0-35.0); MCHC 32.8 g/dL (31.0-37.0); MCV 95.4 fL (80.0-100.0); Mean Platelet Volume 7.1; Monocytes # (A) 0.6 k/uL (0-1.0); Monocytes % (A) 5 %; Neutrophils # (A) 7.6 k/uL (1.3-7.7); Neutrophils % (A) 69 %; Platelet Count 360 k/uL (150-450); RBC 4.16 m/uL (3.80-5.40); RDW 12.2 % (11.5-15.5)
[2021-07-01 17:50] LABS: Albumin 4.5 g/dL (3.5-5.0)
[2021-07-01 17:58] LABS: ALT 12 U/L (4-34); AST 22 U/L (14-36); African American GFR (CKD) >90 (>60 ml/min/1.73 sqM); Alkaline Phosphatase 74 U/L (38-126); Anion Gap 10 mmol/L; Blood Urea Nitrogen 10 mg/dL (7-17); Calcium 9.5 mg/dL (8.4-10.2); Carbon Dioxide 25 mmol/L (22-30); Chloride 106 mmol/L (98-107); Glucose 100 mg/dL (74-99); Non-African American GFR(CKD) >90 (>60 ml/min/1.73 sqM); Sodium 141 mmol/L (137-145); Total Bilirubin 0.3 mg/dL (0.2-1.3)
[2021-07-01 18:00] VITALS: BP 140/93; PULSE 87; RESP 20
--- NOTE | 2021-07-01 18:16 | USB ---
Ultrasound left breast INDICATION: Left breast larger than right x3 days, induration, pain COMPARISON: None TECHNIQUE: Real-time linear array sonography is performed over the left breast. All 4 quadrants retro areolar and axillary regions are scanned. FINDINGS: Please see technologist sheet. No suspicious findings are identified. No ultrasound abnormality to account for the patient's indurat ion and pain is identified. Note that abnormalities such as cellulitis and inflammatory breast cancer may not be identified by marion greene. IMPRESSIONS: 1. Benign findings. 2. BI-RADS 2 Recommendations: 1. Clinical management of the patient's induration. 2. Consider follow-up mammogram. Most recent mammogram at this location is 2013. 3. Patient should continue monthly self breast exam. 4. Negative ultrasound should not preclude additional follow-up of suspicious clinical findings.
[2021-07-01] MEDS ORDERED: CEPHALEXIN 500 MG CAP PO STA (18:38)
--- NOTE | 2021-07-01 18:40 | ED ---
General Adult HPI - General Chief complaint: Dizziness Stated complaint: Dizziness,breast pain Source: patient Mode of arrival: ambulatory Limitations: no limitations - History of Present Illness Initial comments: 51-year-old female presents emergency Department with reported vertiginous symptoms and ringing in her bilateral ears. States her symptoms started 3 days ago. Subsequently at the same time the patient also began developing induration to her left breast. States that she has a history of mastitis when she was breast-feeding however hasn't had any issues since. Denies any breast drainage. States that it is tender to the touch. Reports that she normally does get mammograms however has not had one in a couple of years. She denies any headaches, fevers, chills, nausea, vomiting or abdominal pain. No ataxia. No recent head trauma. No cardiac activity manipulations of the neck. No speech difficulties denies any weakness in her upper or lower extremities. No other alleviating, precipitating or modifying factors - Related Data Home Medications Medication Instructions Recorded Confirmed Dextroamphetamine/Amphetamine 30 mg PO BID 03/09/19 07/01/21 [Adderall] Levothyroxine Sodium [Synthroid] 75 mcg PO DAILY 03/09/19 07/01/21 Latanoprost [Xalatan 0.005%] 1 drop RIGHT EYE HS 07/01/21 07/01/21 Previous Rx's Medication Instructions Recorded Cephalexin [Keflex] 500 mg PO Q6HR #28 cap 07/01/21 Meclizine [Antivert] 25 mg PO TID PRN #15 tab 07/01/21 Allergies Allergy/AdvReac Type Severity Reaction Status Date / Time Penicillins Allergy Unknown Verified 07/01/21 17:59 Childhood Review of Systems ROS Statement: Those systems with pertinent positive or pertinent negative responses have been documented in the HPI. ROS Other: All systems not noted in ROS Statement are negative. Past Medical History Past Medical History: Fibromyalgia, Thyroid Disorder Additional Past Medical History / Comment(s): carpal tunnel, , narcolepsy History of Any Multi-Drug Resistant Organisms: None Reported Past Surgical History: Section Additional Past Surgical History / Comment(s): facial surgery Past Anesthesia/Blood Transfusion Reactions: No Reported Reaction Past Psychological History: Anxiety, Depression Smoking Status: Vaper Past Alcohol Use History: Occasional Past Drug Use History: None Reported - Past Family History Mother Family Medical History: No Reported History General Exam Limitations: no limitations Course Vital Signs 07/01/21 07/01/21 13:55 17:58 Temperature 97.9 F Pulse Rate 77 87 Respiratory 18 20 Rate Blood Pressure 173/102 140/93 O2 Sat by Pulse 100 96 Oximetry EKG Findings - EKG Comments: EKG Findings:: EKG demonstrates Thuan's rhythm with ventricular rate of 72. DC interval 140. QRS 84. QTC of 429. No acute ST segment elevations or depressions concerning for ischemic changes Medical Decision Making - Medical Decision Making Upon arrival patient was placed into room 4. A thorough history and physical exam is performed. IV is established. Patient was given a dose of meclizine. Laboratory studies are conducted and she does have an ultrasound performed of the left breast. Laboratory studies are performed and within normal limits. Ultrasound is read as negative for any abnormalities. Patient is informed of the differential including cellulitis versus inflammatory breast cancer. Patient will be started on Keflex. Instructed felt the primary care doctor. I recommend that she have a mammogram, especially if her symptoms do not improve with antibiotics. Patient is able to get up and ambulate and states that her symptoms of vertigo are much improved after the meclizine. Patient will be additionally given a dose of meclizine needs to follow-up with her primary care doctor for further evaluation of this. Should she get any new or worsening symptoms she should return to the emergency room. Patient was given written and verbal discharge instructions and discharged home to condition - Lab Data Result diagrams: 07/01/21 17:26 07/01/21 17:26 Lab Results 07/01/21 07/01/21 07/01/21 Range/Units 17:26 17:26 17:26 WBC 11.0 H (3.8-10.6) k/uL RBC 4.16 (3.80-5.40) m/uL Hgb 13.0 (11.4-16.0) gm/dL Hct 39.7 (34.0-46.0) % MCV 95.4 (80.0-100.0) fL MCH 31.3 (25.0-35.0) pg MCHC 32.8 (31.0-37.0) g/dL RDW 12.2 (11.5-15.5) % Plt Count 360 (150-450) k/uL MPV 7.1 Neutrophils % 69 % Lymphocytes % 21 % Monocytes % 5 % Eosinophils % 2 % Basophils % 0 % Neutrophils # 7.6 (1.3-7.7) k/uL Lymphocytes # 2.4 (1.0-4.8) k/uL Monocytes # 0.6 (0-1.0) k/uL Eosinophils # 0.2 (0-0.7) k/uL Basophils # 0.0 (0-0.2) k/uL Sodium 141 (137-145) mmol/L Potassium 4.0 (3.5-5.1) mmol/L Chloride 106 (98-107) mmol/L Carbon Dioxide 25 (22-30) mmol/L Anion Gap 10 mmol/L BUN 10 (7-17) mg/dL Creatinine 0.53 (0.52-1.04) mg/dL Est GFR (CKD-EPI)AfAm >90 (>60 ml/min/1.73 sqM) Est GFR (CKD-EPI)NonAf >90 (>60 ml/min/1.73 sqM) Glucose 100 H (74-99) mg/dL Plasma Lactic Acid Noel 1.6 (0.7-2.0) mmol/L Calcium 9.5 (8.4-10.2) mg/dL Total Bilirubin 0.3 (0.2-1.3) mg/dL AST 22 (14-36) U/L ALT 12 (4-34) U/L Alkaline Phosphatase 74 (38-126) U/L Troponin I (0.000-0.034) ng/mL Total Protein 7.0 (6.3-8.2) g/dL Albumin 4.5 (3.5-5.0) g/dL 07/01/21 Range/Units 17:26 WBC (3.8-10.6) k/uL RBC (3.80-5.40) m/uL Hgb (11.4-16.0) gm/dL Hct (34.0-46.0) % MCV (80.0-100.0) fL MCH (25.0-35.0) pg MCHC (31.0-37.0) g/dL RDW (11.5-15.5) % Plt Count (150-450) k/uL MPV Neutrophils % % Lymphocytes % % Monocytes % % Eosinophils % % Basophils % % Neutrophils # (1.3-7.7) k/uL Lymphocytes # (1.0-4.8) k/uL Monocytes # (0-1.0) k/uL Eosinophils # (0-0.7) k/uL Basophils # (0-0.2) k/uL Sodium (137-145) mmol/L Potassium (3.5-5.1) mmol/L Chloride (98-107) mmol/L Carbon Dioxide (22-30) mmol/L Anion Gap mmol/L BUN (7-17) mg/dL Creatinine (0.52-1.04) mg/dL Est GFR (CKD-EPI)AfAm (>60 ml/min/1.73 sqM) Est GFR (CKD-EPI)NonAf (>60 ml/min/1.73 sqM) Glucose (74-99) mg/dL Plasma Lactic Acid Noel (0.7-2.0) mmol/L Calcium (8.4-10.2) mg/dL Total Bilirubin (0.2-1.3) mg/dL AST (14-36) U/L ALT (4-34) U/L Alkaline Phosphatase (38-126) U/L Troponin I <0.012 (0.000-0.034) ng/mL Total Protein (6.3-8.2) g/dL Albumin (3.5-5.0) g/dL Disposition Clinical Impression: Vertigo, Acute mastitis of left breast Disposition: HOME SELF-CARE Condition: Stable Instructions (If sedation given, give patient instructions): Mastitis (ED), Dizziness (ED) Additional Instructions: Please take the antibiotic as directed. If you do not have any improvement in y our symptoms, you will need reevaluation. I recommend a mammogram. Return to the emergency room for any new or worsening symptoms Prescriptions: Meclizine [Antivert] 25 mg PO TID PRN #15 tab PRN Reason: Vertigo Cephalexin [Keflex] 500 mg PO Q6HR #28 cap Is patient prescribed a controlled substance at d/c from ED?: No Referrals: Broderick Horn MD [Primary Care Provider] - 1-2 days Time of Disposition: 18:39
== END 2021-07-01 18:57 | disposition home or self-care (01) ==
LOC: EC 13:38
DX: R42 Dizziness and giddiness (principal); N61.0 Mastitis without abscess; E07.9 Disorder of thyroid, unspecified; F41.9 Anxiety disorder, unspecified; F32.9 Major depressive disorder, single episode, unspecified; F17.290 Nicotine dependence, other tobacco product, uncomplicated; Z88.0 Allergy status to penicillin
CPT/HCPCS: 36415; 80053; 83605; 84484; 85025; 93005; 99284

== ENCOUNTER 2021-07-09 11:19 | Day surgery (SDC) | payer OTHER ==
[2021-07-08 09:16] VITALS: BMI 19.2
[~2021-07-09 11:19] MED LIST changes: +DEXAMETHASONE SOD PHOSPHATE 4 MG/ML 1 ML VIAL IV ONE; -GLYCOPYRROLATE 0.2 MG/ML 2 ML VIAL ONE; +HYDROmorphone 0.5 MG/0.5 ML SYRINGE IVP PRN; -LIDOCAINE 1% INJ 10MG/ML (20 ML MDV) ONE; +ONDANSETRON 4 MG/2 ML VIAL IVP ONE; -PROPOFOL 10 MG/ML 20 ML VIAL IV ONE; +Pre Op ABX Message 1 EACH MISC MISCELLANE ONE
[2021-07-09 11:53] VITALS: TEMP 97.8
[2021-07-09] MEDS ORDERED: LIDOCAINE 1% (10MG/ML) FOR IV START INTRADERMA ONE (11:55)
[2021-07-09] MEDS ORDERED: fentaNYL (PF) 50 MCG/ML 2 ML AMP ONE (14:05)
[2021-07-09] MEDS ORDERED: PROPOFOL 10 MG/ML 20 ML VIAL IV ONE (14:05)
[2021-07-09] MEDS ORDERED: MIDAZOLAM 2 MG/2 ML VIAL ONE (14:05)
[2021-07-09] MEDS ORDERED: LIDOCAINE 2% INJ 20 MG/ML SQ ONE ×2 (14:19)
--- NOTE | 2021-07-09 14:38 | P.OP ---
Date of Procedure: 07/09/21 Procedure(s) Performed: PREOPERATIVE DIAGNOSES: 1. Right wrist carpal tunnel syndrome POSTOPERATIVE DIAGNOSES: 1. Right wrist carpal tunnel syndrome PROCEDURES PERFORMED: 1. Right wrist carpal tunnel release ANESTHESIA: Local with IV sedation OWNER CONSULTING ENGINEER: None COMPLICATIONS: None ESTIMATED BLOOD LOSS: Less than 1 mL DISPOSITION: To post-anesthesia care unit INDICATIONS: Sandie is a 51-year-old female who has had EMG/nerve conduction study confirmed carpal tunnel syndrome with unrelenting symptoms. She desires to have a carpal tunnel release as discussed in office. I discussed the steps of the surgery as well as potential risks and complications as being inclusive of, but not limited to: Bleeding, infection, scarring, discomfort, blood vessel and/or nerve damage, need for further surgery, stiffness, tendon injury, persistence or recurrence of symptoms and other risks. The patient is aware of these risks and wishes to proceed with surgery. The consent form has been signed. PROCEDURE: After appropriate consent was obtained, the patient was taken to the operating room placed in the supine position. Anesthesia was initiated, and after confirmation of adequate anesthesia, the patient was carefully positioned. Care was taken to make sure that all pressure points were adequately padded. Timeout was called, confirming patient identity, side, procedure, and no antibiotics were administered. Limb was exsanguinated with an Esmarch bandage and the tourniquet was inflated to 250 mmHg. Total tourniquet time for the case was approximately 9 minutes. Incision was created in line with the radial border of the fourth ray at the base of the palm. Incision was carried down through skin and then lightly spread down to palmar fascia. Retractors were placed. Excellent visualization of the palmar fascia was accomplished and the palmar fascia was incised to rev eal the underlying transverse carpal ligament. The ligament was incised sharply using a knife and released in 1 mm increments both proximally and distally to the extent of the wound. Further fascial releases were performed in both directions using gentle push technique with curved small Metzenbaum scissors. Full release was confirmed with visual inspection and instrument palpation. The underlying structures of the carpal tunnel were noted to be fairly normal without evidence of significant tenosynovitis. Thorough irrigation was performed using normal saline. Tourniquet was deflated and combination of bipolar electrocautery and pressure was used for hemostasis. Closure was performed using vertical mattress 4-0 nylon suture. Sterile dressing was applied and further pressure was held over the wound for 3 minutes for additional hemostasis. Vascular status remained good with less than 2 second capillary refill. Patient tolerated the procedure well and taken to recovery room in stable condition. Counts were correct.
[2021-07-09] MEDS ORDERED: ACETAMINOPHEN TAB 325 MG TAB ONE (14:49)
[2021-07-09] MEDS ORDERED: ACETAMINOPHEN TAB 325 MG TAB PO ONE (14:51)
[2021-07-09 15:24] VITALS: BP 159/91; PULSE 93; RESP 16
== END 2021-07-09 15:28 | disposition home or self-care (01) ==
LOC: OR 11:19
PROVIDERS: ATTEND Orthopaedic Surgery
DX: G56.01 Carpal tunnel syndrome, right upper limb (principal); Z88.0 Allergy status to penicillin; E07.9 Disorder of thyroid, unspecified; G47.419 Narcolepsy without cataplexy; Z79.899 Other long term (current) drug therapy
CPT/HCPCS: 64721; J2001; J2250; J1100; J2405; J3010; J2704

== ENCOUNTER 2022-07-15 11:52 | Emergency (ER) | payer OTHER ==
[2022-07-15 12:28] VITALS: BP 124/61
[2022-07-15 13:00] LABS: Appearance,Urine Cloudy (Clear); Bacteria,Urine Occasional /hpf; Bilirubin,Urine Negative (Negative); Blood,Urine Moderate (Negative); Color,Urine Yellow; Glucose,Urine (UA) Negative (Negative); Ketones,Urine Negative (Negative); Leukocyte Esterase,Urine Large (Negative); Mucus,Urine Occasional /hpf; Nitrite,Urine Positive (Negative); Protein,Urine 2+ (Negative); RBC,Urine 19 /hpf (0-5); Specific Gravity,Urine 1.014 (1.001-1.035); Squamous Epithelial Cell,Urine 4 /hpf (0-4); Urobilinogen,Urine <2.0 mg/dL (<2.0); WBC,Urine 126 /hpf (0-5)
[2022-07-15] MEDS ORDERED: KETOROLAC 15 MG/ML 1 ML VIAL IVP STA (13:31)
[2022-07-15] MEDS ORDERED: PANTOPRAZOLE 40 MG/10 ML VIAL IVP STA (13:31)
[2022-07-15] MEDS ORDERED: SODIUM CHLORIDE 0.9% 1,000 ML IV STA (13:31)
--- NOTE | 2022-07-15 13:37 | ED ---
Abdominal Pain HPI - General Source: patient, RN notes reviewed, old records reviewed Mode of arrival: ambulatory Limitations: no limitations - History of Present Illness MD Complaint: abdominal pain -: days(s) (5) Location: diffuse Severity scale (1-10): 5 Consistency: constant Improves With: nothing Associated Symptoms: fever, constipation <Alex Catalan - Last Filed: 07/15/22 16:02> <Curtis Fraser - Last Filed: 07/15/22 16:32> - General Chief Complaint: Abdominal Pain Stated Complaint: Abd pain Time Seen by Provider: 07/15/22 13:24 - History of Present Illness Initial Comments: Tearful 52-year-old female presents to the emergency room ambulatory with complaints of abdominal pain that started on Monday. She states that she felt constipated and took a laxative with a hard stool result but continues to have abdominal pain and feels a hard mass in her abdomen. Denies any nausea or vomiting. States that she does have a history of fibromyalgia has not had a flare in years. She does vape tobacco daily. Abdominal surgical history two C- sections. (Alex Catalan) - Related Data Home Medications Medication Instructions Recorded Confirmed Dextroamphetamine/Amphetamine 30 mg PO BID 03/09/19 07/09/21 [Adderall] Levothyroxine Sodium [Synthroid] 75 mcg PO DAILY 03/09/19 07/09/21 Latanoprost [Xalatan 0.005%] 1 drop RIGHT EYE HS 07/01/21 07/09/21 Previous Rx's Medication Instructions Recorded Meclizine [Antivert] 25 mg PO TID PRN #15 tab 07/01/21 Cephalexin [Keflex] 500 mg PO Q12HR 7 Days #14 cap 07/15/22 Allergies Allergy/AdvReac Type Severity Reaction Status Date / Time Penicillins Allergy Unknown Verified 07/15/22 12:28 Childhood Review of Systems ROS Other: All systems not noted in ROS Statement are negative. <Alex Catalan - Last Filed: 07/15/22 16:02> ROS Other: All systems not noted in ROS Statement are negative. <Curtis Fraser - Last Filed: 07/15/22 16:32> ROS Statement: Those systems with pertinent positive or pertinent negative responses have been documented in the HPI. Past Medical History Past Medical History: Fibromyalgia, Thyroid Disorder Additional Past Medical History / Comment(s): carpal tunnel, , narcolepsy History of Any Multi-Drug Resistant Organisms: None Reported Past Surgical History: Section Additional Past Surgical History / Comment(s): facial surgery Past Anesthesia/Blood Transfusion Reactions: No Reported Reaction Past Psychological History: Anxiety, Depression Smoking Status: Vaper Past Alcohol Use History: Occasional Past Drug Use History: None Reported - Past Family History Mother Family Medical History: No Reported History <Alex Catalan - Last Filed: 07/15/22 16:02> General Exam Limitations: no limitations General appearance: alert, in no apparent distress Head exam: Present: atraumatic Eye exam: Present: normal appearance. Absent: scleral icterus, conjunctival injection, periorbital swelling ENT exam: Present: mucous membranes moist Neck exam: Present: full ROM. Absent: tenderness, meningismus Respiratory exam: Present: normal lung sounds bilaterally. Absent: respiratory distress, wheezes, rales, rhonchi, stridor, chest wall tenderness, accessory muscle use, decreased breath sounds Cardiovascular Exam: Present: tachycardia GI/Abdominal exam: Present: soft, tenderness (Epigastric and left lower quadrant). Absent: distended, guarding, rebound, rigid, mass Extremities exam: Present: full ROM, normal capillary refill. Absent: tenderness, pedal edema Back exam: Present: normal inspection, full ROM. Absent: tenderness, CVA tender ness (R), CVA tenderness (L), paraspinal tenderness, vertebral tenderness, rash noted Neurological exam: Present: alert, oriented X3, normal gait Psychiatric exam: Present: other (tearful) Skin exam: Present: warm, dry, normal color. Absent: cyanosis, diaphoretic <Alex Catalan - Last Filed: 07/15/22 16:02> Course - Reevaluation(s) Time: 15:18 <Alex Catalan Last Filed: 07/15/22 16:02> Vital Signs 07/15/22 07/15/22 12:25 15:24 Temperature 100.2 F H 100.6 F H Pulse Rate 126 H 102 H Respiratory 20 18 Rate Blood Pressure 124/61 O2 Sat by Pulse 99 97 Oximetry - Reevaluation(s) Reevaluation #1: 07/15/22 15:18 Patient feeling much better after IV fluids and medication. On physical assessment she still has left lower quadrant and right lower quadrant pain to palpation. CT was ordered rule out appendicitis and diverticulitis. 07/15/22 15:26 (Alex Catalan) Medical Decision Making - Lab Data Result diagrams: 07/15/22 14:10 07/15/22 14:10 - EKG Data Rate: tachycardia (Sinus tachycardia, ventricular rate 112, MI interval 0.143, QRS 0.91, QTC 0.378; normal axis) <Alex Catalan - Last Filed: 07/15/22 16:02> - Lab Data Result diagrams: 07/15/22 14:10 07/15/22 14:10 <Curtis Fraser - Last Filed: 07/15/22 16:32> - Medical Decision Making X-ray shows a nonspecific bowel gas pattern, no acute process. Fecal matter in gas demonstrated throughout the colon and rectum. No evidence of pneumoperitoneum. There is evidence leukocytosis likely related to urinary tract infection Patient was given a gram of Rocephin in the emergency room along with IV fluids and Toradol. She does report some pain relief. Assessment patient remains febrile and tachycardic with right lower quadrant pain. CT ordered. Case signed out to Dr. Frasre (Alex Catalan) Patient was sent out to me by previous shift nurse practitioner, Liyah batista. Patient is a 52-year-old female presents to the emergency department for abdominal pain. Laboratory evaluation showed mild leukocytosis of 13.2. Sodium of 1:30. Rest of labs within acceptable limits. Urinalysis is positive for urinary tract infection. Computed tomography scan was ordered due to patient having concerning abdominal symptoms. Computed tomography scan suggestive of pyelonephritis versus acute tubular necrosis versus hypertension. Clinical presentation suspicious for pyelonephritis considering patient's urine is positive for UTI. Patient reevaluated bedside at 4:30 PM found with stable medical condition. Disposition options were discussed. Patient is agreeable for discharge. She understands that she has findings consistent with kidney infection that these can become severe is not treated appropriately. Patient is however adamant about discharge. She does have good social situation. She is relatively healthy and understands that she should return to emergency department if her symptoms acutely worsen. (Curtis Fraser) - Lab Data Lab Results 07/15/22 07/15/22 07/15/22 Range/Units 12:28 14:10 14:10 WBC 13.2 H (3.8-10.6) k/uL RBC 3.75 L (3.80-5.40) m/uL Hgb 12.0 (11.4-16.0) gm/dL Hct 35.1 (34.0-46.0) % MCV 93.5 (80.0-100.0) fL MCH 32.0 (25.0-35.0) pg MCHC 34.2 (31.0-37.0) g/dL RDW 13.1 (11.5-15.5) % Plt Count 243 (150-450) k/uL MPV 7.9 Neutrophils % 82 % Lymphocytes % 5 % Monocytes % 10 % Eosinophils % 0 % Basophils % 0 % Neutrophils # 10.9 H (1.3-7.7) k/uL Lymphocytes # 0.7 L (1.0-4.8) k/uL Monocytes # 1.3 H (0-1.0) k/uL Eosinophils # 0.0 (0-0.7) k/uL Basophils # 0.0 (0-0.2) k/uL Sodium 130 L (137-145) mmol/L Potassium 4.1 (3.5-5.1) mmol/L Chloride 97 L (98-107) mmol/L Carbon Dioxide 23 (22-30) mmol/L Anion Gap 10 mmol/L BUN 10 (7-17) mg/dL Creatinine 0.91 (0.52-1.04) mg/dL Est GFR (CKD-EPI)AfAm 83 (>60 ml/min/1.73 sqM) Est GFR (CKD-EPI)NonAf 72 (>60 ml/min/1.73 sqM) Glucose 167 H (74-99) mg/dL Plasma Lactic Acid Noel (0.7-2.0) mmol/L Calcium 8.6 (8.4-10.2) mg/dL Magnesium 1.7 (1.6-2.3) mg/dL Total Bilirubin 0.6 (0.2-1.3) mg/dL AST 59 H (14-36) U/L ALT 47 H (4-34) U/L Alkaline Phosphatase 223 H (38-126) U/L Troponin I (0.000-0.034) ng/mL Total Protein 5.9 L (6.3-8.2) g/dL Albumin 3.5 (3.5-5.0) g/dL Amylase <30 L (30-110) U/L Lipase 20 L (23-300) U/L Urine Color Yellow Urine Appearance Cloudy H (Clear) Urine pH 6.0 (5.0-8.0) Ur Specific Maury 1.014 (1.001-1.035) Urine Protein 2+ H (Negative) Urine Glucose (UA) Negative (Negative) Urine Ketones Negative (Negative) Urine Blood Moderate H (Negative) Urine Nitrite Positive H (Negative) Urine Bilirubin Negative (Negative) Urine Urobilinogen <2.0 (<2.0) mg/dL Ur Leukocyte Esterase Large H (Negative) Urine RBC 19 H (0-5) /hpf Urine WBC 126 H (0-5) /hpf Urine WBC Clumps Few H (None) /hpf Ur Squamous Epith Cells 4 (0-4) /hpf Urine Bacteria Occasional H (None) /hpf Urine Mucus Occasional H (None) /hpf 07/15/22 07/15/22 Range/Units 14:10 14:10 WBC (3.8-10.6) k/uL RBC (3.80-5.40) m/uL Hgb (11.4-16.0) gm/dL Hct (34.0-46.0) % MCV (80.0-100.0) fL MCH (25.0-35.0) pg MCHC (31.0-37.0) g/dL RDW (11.5-15.5) % Plt Count (150-450) k/uL MPV Neutrophils % % Lymphocytes % % Monocytes % % Eosinophils % % Basophils % % Neutrophils # (1.3-7.7) k/uL Lymphocytes # (1.0-4.8) k/uL Monocytes # (0-1.0) k/uL Eosinophils # (0-0.7) k/uL Basophils # (0-0.2) k/uL Sodium (137-145) mmol/L Potassium (3.5-5.1) mmol/L Chloride (98-107) mmol/L Carbon Dioxide (22-30) mmol/L Anion Gap mmol/L BUN (7-17) mg/dL Creatinine (0.52-1.04) mg/dL Est GFR (CKD-EPI)AfAm (>60 ml/min/1.73 sqM) Est GFR (CKD-EPI)NonAf (>60 ml/min/1.73 sqM) Glucose (74-99) mg/dL Plasma Lactic Acid Noel 1.0 (0.7-2.0) mmol/L Calcium (8.4-10.2) mg/dL Magnesium (1.6-2.3) mg/dL Total Bilirubin (0.2-1.3) mg/dL AST (14-36) U/L ALT (4-34) U/L Alkaline Phosphatase (38-126) U/L Troponin I <0.012 (0.000-0.034) ng/mL Total Protein (6.3-8.2) g/dL Albumin (3.5-5.0) g/dL Amylase (30-110) U/L Lipase (23-300) U/L Urine Color Urine Appearance (Clear) Urine pH (5.0-8.0) Ur Specific Maury (1.001-1.035) Urine Protein (Negative) Urine Glucose (UA) (Negative) Urine Ketones (Negative) Urine Blood (Negative) Urine Nitrite (Negative) Urine Bilirubin (Negative) Urine Urobilinogen (<2.0) mg/dL Ur Leukocyte Esterase (Negative) Urine RBC (0-5) /hpf Urine WBC (0-5) /hpf Urine WBC Clumps (None) /hpf Ur Squamous Epith Cells (0-4) /hpf Urine Bacteria (None) /hpf Urine Mucus (None) /hpf Disposition <Alex Catalan - Last Filed: 07/15/22 16:02> Is patient prescribed a controlled substance at d/c from ED?: No Time of Disposition: 16:30 <Curtis Fraser - Last Filed: 07/15/22 16:32> Clinical Impression: UTI (urinary tract infection) Disposition: HOME SELF-CARE Instructions (If sedation given, give patient instructions): Kidney Infection (ED) Additional Instructions: Increase your fluid intake. Take antibiotics as prescribed, Tylenol and Motrin as needed for any fevers, pain or discomfort. Follow-up with the primary care doctor next week. Prescriptions: Cephalexin [Keflex] 500 mg PO Q12HR 7 Days #14 cap Referrals: Broderick Horn MD [Primary Care Provider] - 1-2 days
[2022-07-15] MEDS ORDERED: cefTRIAXone IN SWFI 1,000 MG/10 ML SYRINGE IVP STA (14:12)
[2022-07-15 14:19] LABS: Basophils % (A) 0 %; Eosinophils % (A) 0 %; HCT 35.1 % (34.0-46.0); Lymphocytes # (A) 0.7 k/uL (1.0-4.8); Lymphocytes % (A) 5 %; MCHC 34.2 g/dL (31.0-37.0); MCV 93.5 fL (80.0-100.0); Mean Platelet Volume 7.9; Monocytes # (A) 1.3 k/uL (0-1.0); Monocytes % (A) 10 %; Neutrophils # (A) 10.9 k/uL (1.3-7.7); Neutrophils % (A) 82 %; Platelet Count 243 k/uL (150-450); RBC 3.75 m/uL (3.80-5.40); RDW 13.1 % (11.5-15.5); WBC 13.2 k/uL (3.8-10.6)
[2022-07-15 14:32] LABS: ALT 47 U/L (4-34); AST 59 U/L (14-36); African American GFR (CKD) 83 (>60 ml/min/1.73 sqM); Albumin 3.5 g/dL (3.5-5.0); Alkaline Phosphatase 223 U/L (38-126); Amylase <30 U/L (30-110); Anion Gap 10 mmol/L; Blood Urea Nitrogen 10 mg/dL (7-17); Calcium 8.6 mg/dL (8.4-10.2); Carbon Dioxide 23 mmol/L (22-30); Chloride 97 mmol/L (98-107); Glucose 167 mg/dL (74-99); Lipase 20 U/L (23-300); Magnesium 1.7 mg/dL (1.6-2.3); Non-African American GFR(CKD) 72 (>60 ml/min/1.73 sqM); Potassium 4.1 mmol/L (3.5-5.1); Sodium 130 mmol/L (137-145); Total Bilirubin 0.6 mg/dL (0.2-1.3); Total Protein 5.9 g/dL (6.3-8.2)
--- NOTE | 2022-07-15 15:19 | XR ---
EXAMINATION TYPE: XR KUB DATE OF EXAM: 07/15/2022 2:47 PM INDICATION: Patient age:Female; 52 years old; Reason for study: abdominal pain; COMPARISON: None. TECHNIQUE: One radiographic view of the abdomen was obtained. FINDINGS: The bowel gas pattern is nonspecific without dilated loops of small or large bowel. There i s no evidence for organomegaly or pneumoperitoneum. The osseous structures are intact. No abnormal calcifications are present. Fecal material and gas are demonstrated throughout the colon and rectum. IMPRESSION: Nonspecific bowel gas pattern without radiographic evidence for acute process.
[2022-07-15 15:25] VITALS: PULSE 102; RESP 18; TEMP 100.6
[2022-07-15] MEDS ORDERED: ACETAMINOPHEN TAB 325 MG TAB PO STA (15:30)
--- NOTE | 2022-07-15 16:16 | CT ---
EXAMINATION TYPE: CT abdomen pelvis w con CT DLP: 501.5 mGycm, Automated exposure control for dose reduction was used. DATE OF EXAM: 07/15/2022 4:06 PM COMPARISON: None CLINICAL INDICATION:Female, 52 years old with history of RLQ and LLQ pain; pain TECHNIQUE: Axial CT of the abdomen and pelvis. Sagittal and coronal reformats were created on a [employer] workstation. Contrast used:100 mL of Isovue 300 with IV Contrast, Oral contrast used: without Oral Contrast FINDINGS: LOWER CHEST: Unremarkable ABDOMEN LIVER: Few scattered hypodense areas likely representing cysts. GALLBLADDER AND BILE DUCTS: Unremarkable. PANCREAS: Unremarkable. SPLEEN: Unremarkable. ADRENAL GLANDS: Unremarkable. KIDNEYS AND URETERS: There are striated bilateral nephrograms, right greater than left. No evidence o f hydronephrosis or renal calculus. PELVIS BLADDER: Unremarkable REPRODUCTIVE: Unremarkable. ABDOMEN & PELVIS STOMACH AND BOWEL: No evidence of bowel obstruction. PERITONEUM: No evidence of pneumoperitoneum. Trace free fluid within the pelvis. VASCULATURE: No evidence of aortic aneurysm. MUSCULOSKELETAL: No acute osseous abnormalities, multilevel disc degeneration changes are seen throug hout the spine. LYMPH NODES: No gross evidence for lymphadenopathy. SOFT TISSUE/ABDOMINAL WALL: Unremarkable IMPRESSION: Striated bilateral nephrograms, right greater than left. Findings can be seen in setting of pyeloneph ritis, acute tubular necrosis and hypotension among other etiologies. Clinical correlation advised. N o evidence of obstructive uropathy.
== END 2022-07-15 16:38 | disposition home or self-care (01) ==
LOC: EC 11:52
DX: N39.0 Urinary tract infection, site not specified (principal); E03.9 Hypothyroidism, unspecified; F41.9 Anxiety disorder, unspecified; F32.A Depression, unspecified; F17.290 Nicotine dependence, other tobacco product, uncomplicated; Z79.890 Hormone replacement therapy; Z79.899 Other long term (current) drug therapy; Z88.0 Allergy status to penicillin
CPT/HCPCS: 36415; 80053; 82150; 83605; 83690; 83735; 84484; 85025; 81001; 87086; 87077; 87186; 74018; 74177; 99284; 96374; 96375 ×2; 96361; J0696; J1885; C9113; Q9967; 93005

== ENCOUNTER → 2022-09-02 | Outpatient (CLI) | payer OTHER ==
--- NOTE | 2022-09-02 22:50 | BD ---
EXAMINATION TYPE: Axial Bone Density DATE OF EXAM: 09/02/2022 COMPARISON: NONE CLINICAL HISTORY: 52 years year old Female. ICD-10 CODE: Z78.0 ASYMPTOMATIC MENOPAUSAL STATE Height: 62.5 IN Weight: 107 LBS FRAX RISK QUESTIONS: History of Fracture in Adulthood: RIB FX AGE 44; TOE FX AGE 44 Secondary Osteoporosis: 3. Menopause before 45: AGE 40 RISK FACTORS HISTORY OF: Active: YES Postmenopausal woman: AGE 40 Take estrogen and/or progesterone medications: NOT NOW How long: CONTROL 20 YEARS MEDICATIONS: Thyroid Medications: YES Which medication: LEVOTHYROXINE How Lon YEARS Additional Medications: LEVOTHYROXINE, ADDEROL, EXAM MEASUREMENTS: Bone mineral densitometry was performed using the [employer] System. Bone mineral density as measured about the Lumbar spine is: ----- L1-L4(G/cm2): 0.980 T Score Values are as follows: ----- L1: -2.1 ----- L2: -2.4 ----- L3: -2.0 ----- L4: -0.7 ----- L1-L4: -1.7 Bone mineral density BASELINE Bone mineral density about the R hip (g/cm2): 0.757 Bone mineral density about the L hip (g/cm2): 0.804 T Score values are as follows: -----R Neck: -2.0 -----L Neck: -1.7 -----R Total: -1.9 -----L Total: -2.1 Bone mineral density BASELINE FRAX%s: The graph provided illustrates a 11.0 chance for a major osteoporotic fx and a 1.7 chance for the hips probability for fx in 10 years time. IMPRESSION: Osteopenia (T Score between -2.5 and -1). There is slightly increased risk of fracture and the patient may be considered for treatment. Re-Screen 2-5 years. NOTE: T-SCORE=SD OF THE YOUNG ADULT MEAN.
--- NOTE | 2022-09-05 08:07 | MM ---
Reason for Exam: Screening (asymptomatic). Last mammogram was performed 8 year(s) and 7 month(s) ago. Patient History: Menarche at age 12. First Full-Term at age 20. Postmenopausal. Sister had breast cancer, age 58. Risk Values: Carolann 5 year model risk: 2.1%. NCI Lifetime model risk: 15.7%. Prior Study Comparison: 01/27/2014 Bilateral Screening Mammogram, [facility]. Tissue Density: The breast tissue is extremely dense which could obscure a lesion on mammography. Findings: Analyzed By CAD. There is a 7 mm focal asymmetric density in the peripheral middle to posterior depth right breast more prominent from prior study. Corresponding abnormality clearly seen on MLO view. Overall Assessment: Incomplete: need additional imaging evaluation, BI-RAD 0 Management: Special View Mammogram of the right breast. Return for additional views right breast. Some advise bilateral breast ultrasound surveillance in patients with background dense tissue. Electronically signed and approved by: Timi Adams M.D.
== END | disposition home or self-care (01) ==
LOC: RADMAMWWP 07:25
PROVIDERS: ATTEND Family Medicine
DX: Z12.31 Encounter for screening mammogram for malignant neoplasm of breast (principal); Z78.0 Asymptomatic menopausal state; Z80.3 Family history of malignant neoplasm of breast
CPT/HCPCS: 77067; 77080

== ENCOUNTER → 2022-09-08 | Outpatient (CLI) | payer OTHER ==
--- NOTE | 2022-09-08 08:38 | MM ---
Reason for Exam: Additional evaluation requested from abnormal screening. Last screening mammogram was performed less than 1 month ago. Patient History: Menarche at age 12. First Full-Term at age 20. Postmenopausal. Sister had breast cancer, age 58. Risk Values: Carolann 5 year model risk: 2.1%. NCI Lifetime model risk: 15.7%. Prior Study Comparison: 01/27/2014 Bilateral Screening Mammogram, [facility]. 09/02/2022 Bilateral MG screening mammo w CAD, [facility]. Tissue Density: Right: The breast tissue is heterogeneously dense. This may lower the sensitivity of mammography. Findings: Analyzed By CAD. Asymmetric density inner right CC view at a middle to posterior depth incompletely disperses on spot compression view. Again, no clear correlate on the lateral view. Further ultrasound evaluation recommended given the dense tissues. Overall Assessment: Incomplete: need additional imaging evaluation, BI-RAD 0 Management: Diagnostic Breast Ultrasound of the right breast. Medial half 12:00 to 6:00. Electronically signed and approved by: Deanna Wang M.D. Radiologist
--- NOTE | 2022-09-08 09:37 | USB ---
Reason for Exam: Additional evaluation requested from abnormal screening. Patient History: Menarche at age 12. First Full-Term at age 20. Postmenopausal. Sister had breast cancer, age 58. Risk Values: Carolann 5 year model risk: 2.1%. NCI Lifetime model risk: 15.7%. Technique: Method: Targeted. Prior Study Comparison: 01/27/2014 Bilateral Screening Mammogram, [facility]. 09/02/2022 Bilateral MG screening mammo w CAD, [facility]. Findings: The medial section of the breast of the right breast, the axilla of the right breast and the retroareolar of the right breast were scanned. Targeted ultrasound right breast medial half 12:00 to 6:00 including the subareolar region and axilla. Scattered dense tissue is present throughout. No solid or cystic lesion. Mild duct ectasia noted. Overall Assessment: Probably benign, BI-RAD 3 Management: Diagnostic Mammogram of the left breast in 6 months. 1. Patient should continue monthly self breast exams. 2. A clinical breast exam by your physician is recommended on an annual basis. 3. This exam should not preclude additional follow-up of suspicious palpable abnormalities. Results were given to the patient verbally at the time of exam. Electronically signed and approved by: Deanna Wang M.D. Radiologist
== END | disposition home or self-care (01) ==
LOC: RADMAMWWP 08:13
PROVIDERS: ATTEND Family Medicine
DX: R92.8 Other abnormal and inconclusive findings on diagnostic imaging of breast (principal); Z78.0 Asymptomatic menopausal state; Z80.3 Family history of malignant neoplasm of breast
CPT/HCPCS: 77065

== ENCOUNTER → 2023-02-16 | Outpatient (CLI) | payer OTHER ==
--- NOTE | 2023-02-16 12:11 | P.PN ---
Subjective DATE: 02/16/2023 FOLLOW UP VISIT. Patient returned to sleep center for follow-up visit related to treatment of significant excessive daytime sleepiness secondary to narcolepsy. Patient is on treatment with Adderall 20 mg 3 times a day. With this regimen patient is controlling sure alertness during the day. . [place] sleepiness scale is increased to 18. MEDICATIONS:1. Synthroid 50 g once a day 2. Adderall 20 mg 3 times a day During physical exam: GENERAL: A pleasant patient without any distress. VITAL SIGNS: BP 136/87, HR 85, RR 12 , weight 106.8, temperature 97.6, oxygen saturation at room air 99% . HEENT: PERRLA, EOMI. NECK: Supple. No JVD. LUNGS: Clear to percussion and to auscultation. Good air exchange. No wheezing or rhonchi. HEART: S1, S2 regular. ABDOMEN: Soft and nontender. EXTREMITIES: No clubbing or cyanosis. DOPE DRY HOUSE OPERATOR: Awake, alert, and oriented x3. No focal deficit. Impressions: 1. Narcolepsy, type II 2. History of fibromyalgia. 3. History of ADHD. 4. History of depression. 5. Hypothyroidism. 6. History of ankylosing spondylitis. 7. History of carpal tunnel syndrome. Plan: 1. Patient will continue treatment with Adderall 20 mg 3 times a day. 2. Sleep hygiene with regular time in bed for at least 8 hours. 3. Daytime naps permitted 4. Precautions related to driving. No driving if feel any sleepiness. Patient is aware about civil and criminal liability for unsafe driving, promised to follow recommendations. 5. Follow up visit in 4-6 months or earlier if patient has any problems. Thank you very much for allowing me to participate in the management of your patient. Conor Willis MD, PhD, FAASM. Diplomat of [place] [employer], Sleep Medicine Board by [place] [employer] Knurling Machine Tender of [facility] [place]
== END ==
LOC: SLEEP 11:17
PROVIDERS: ATTEND Internal Medicine
DX: G47.419 Narcolepsy without cataplexy (principal); M79.7 Fibromyalgia; E03.9 Hypothyroidism, unspecified; F90.9 Attention-deficit hyperactivity disorder, unspecified type; M45.9 Ankylosing spondylitis of unspecified sites in spine; F17.200 Nicotine dependence, unspecified, uncomplicated; F32.A Depression, unspecified; G56.03 Carpal tunnel syndrome, bilateral upper limbs; Z79.890 Hormone replacement therapy; Z88.0 Allergy status to penicillin
CPT/HCPCS: 99212

== ENCOUNTER → 2023-09-28 | Outpatient (CLI) | payer BC ==
--- NOTE | 2023-09-28 15:09 | P.PN ---
Subjective DATE: 09/28/2023 FOLLOW UP VISIT. Patient returned to sleep center for follow-up visit related to treatment of significant excessive daytime sleepiness secondary to narcolepsy. Patient is on treatment with Adderall 30 mg twice a day, but still continued to feel sleepiness and tiredness. . [place] sleepiness scale is 20. MEDICATIONS:1. Adderall 30 mg twice a day During physical exam: GENERAL: A pleasant patient without any distress. VITAL SIGNS: BP 148/99, HR 95, RR 12, weight 116.2, temperature 97.9, oxygen saturation at room air 99%. HEENT: PERRLA, EOMI. NECK: Supple. No JVD. LUNGS: Clear to percussion and to auscultation. Good air exchange. No wheezing or rhonchi. HEART: S1, S2 regular. ABDOMEN: Soft and nontender. EXTREMITIES: No clubbing or cyanosis. CHUCKING MACHINE OPERATOR: Awake, alert, and oriented x3. No focal deficit. Impressions: 1. Narcolepsy, type II 2. History of ADHD. 3. History of fibromyalgia. 4. History of depression. 5. Hypothyroidism. 6. History of ankylosing spondylitis. 7. History of carpal tunnel syndrome. Plan: 1. Patient will continue treatment with Adderall 30 mg twice a day. Additionally I will start patient on modafinil 200 mg once a day in the morning. 2. Sleep hygiene with regular time in bed for at least 8 hours. 3. Daytime naps permitted 4. Precautions related to driving. No driving if feel any sleepiness. Patient is aware about civil and criminal liability for unsafe driving, promised to follow recommendations. 5. Follow up visit in 4-6 months or earlier if patient has any problems. Thank you very much for allowing me to participate in the management of your patient. Conor Willis MD, PhD, FAASM. Diplomat of [place] [employer], Sleep Medicine Board by [place] [employer] Marble Cutter Operator of [facility] [place]
== END ==
LOC: 3 N SLEEP 14:19
PROVIDERS: ATTEND Internal Medicine
DX: G47.419 Narcolepsy without cataplexy (principal); E03.9 Hypothyroidism, unspecified; F90.9 Attention-deficit hyperactivity disorder, unspecified type; M79.7 Fibromyalgia; F32.A Depression, unspecified; M45.9 Ankylosing spondylitis of unspecified sites in spine; F17.200 Nicotine dependence, unspecified, uncomplicated; Z87.39 Personal history of other diseases of the musculoskeletal system and connective tissue; Z88.0 Allergy status to penicillin; Z79.890 Hormone replacement therapy
CPT/HCPCS: 99212

== ENCOUNTER → 2024-08-29 | Outpatient (CLI) | payer BC ==
[2024-08-29 17:04] VITALS: BP 160/92; PULSE 79; RESP 16; TEMP 97.7
--- NOTE | 2024-08-29 17:46 | P.PROGSL ---
Subjective DATE: 08/29/2022 for FOLLOW UP VISIT. Patient returned to sleep center for follow-up visit related to treatment of significant excessive daytime sleepiness secondary to narcolepsy. Patient is on treatment with Adderall 50 mg twice a day and armodafinil 150 mg in the morning. With this regimen patient is able to control her alertness, no side effects of medications. . [place] sleepiness scale is 19, still in the high range. Recently patient developed more episodes of snoring than before, cannot sleep on the back position because of snoring and sometimes awakenings from sleep possibly with abnormalities of respiration. MEDICATIONS:1. Armodafinil 150 mg once a day 2. Adderall 30 mg twice a day During physical exam: GENERAL: A pleasant patient without any distress. VITAL SIGNS: Please see below, weight 113.2 pounds. HEENT: PERRLA, EOMI. oropharynx long uvula. NECK: Supple. No JVD. LUNGS: Clear to percussion and to auscultation. Good air exchange. No wheezing or rhonchi. HEART: S1, S2 regular. ABDOMEN: Soft and nontender. EXTREMITIES: No clubbing or cyanosis. HAND LENS POLISHER: Awake, alert, and oriented x3. No focal deficit. Impressions: 1. Narcolepsy type II 2. History of ADHD. 3. Presently snoring and multiple awakenings from sleep, rule out obstructive sleep apnea. 4. History of fibromyalgia. 5. History of depression. 6. Hypothyroidism. 7. History of carpal tunnel syndrome. 8. History of ankylosing spondylitis. Plan: 1. Patient will continue treatment with Adderall 30 mg twice a day and armodafinil 150 mg once a day in the morning 2. Sleep test for evaluation of patient breathing during the sleep at the present time. 3. Daytime naps permitted 4. Precautions related to driving. No driving if feel any sleepiness. Patient is aware about civil and criminal liability for unsafe driving, promised to follow recommendations. 5. Follow up visit in 4-6 months or earlier if patient has any problems. 6. Sleep hygiene with regular time in bed for at least 8 hours. Thank you very much for allowing me to participate in the management of your patient. Conor Willis MD, PhD, FAASM. Diplomat of [place] [employer], Sleep Medicine Board by [employer] [employer] Bone Char Kiln Tender of [facility] [place] Objective - Vital Signs Vital Signs: Vital Signs Temp 97.7 F 08/29/24 17:03 Pulse 79 08/29/24 17:03 Resp 16 08/29/24 17:03 BP 160/92 08/29/24 17:03 Pulse Ox 97 08/29/24 17:03 FiO2 Intake & Output 08/28/24 08/29/24 08/29/24 18:59 06:59 18:59 Weight 51.313 kg Home Medications: Home Medications Medication Instructions Recorded Confirmed Type Dextroamphetamine/Amphetamine 30 mg PO BID 03/09/19 07/09/21 History [Adderall] Levothyroxine Sodium [Synthroid] 75 mcg PO DAILY 03/09/19 07/09/21 History Latanoprost [Xalatan 0.005%] 1 drop RIGHT EYE HS 07/01/21 07/09/21 History Meclizine [Antivert] 25 mg PO TID PRN #15 tab 07/01/21 07/09/21 Rx Cephalexin [Keflex] 500 mg PO Q12HR 7 Days #14 cap 07/15/22 Rx Dextroamphetamine/Amphetamine 20 mg PO TID 3 Days #90 tab 04/12/23 Rx [Adderall]
== END ==
LOC: 3 N SLEEP 16:20
PROVIDERS: ATTEND Internal Medicine
DX: G47.419 Narcolepsy without cataplexy (principal); G47.33 Obstructive sleep apnea (adult) (pediatric); E03.9 Hypothyroidism, unspecified; F17.200 Nicotine dependence, unspecified, uncomplicated; Z86.59 Personal history of other mental and behavioral disorders; Z87.39 Personal history of other diseases of the musculoskeletal system and connective tissue; Z88.0 Allergy status to penicillin
CPT/HCPCS: 99212